=== PATIENT | female | born 1985 | race American Indian/Alaskan Native ===

== ENCOUNTER 2016-09-08 09:11 | Emergency (ER) | payer SELFPAY ==
[2016-09-08] MEDS ORDERED: MOTRIN PO ONE (12:29)
[2016-09-08] MEDS ORDERED: MAGIC MOUTHWASH PO ONE (12:29)
[2016-09-08] MEDS ORDERED: TYLENOL PO ONE (12:29)
[2016-09-08] MEDS ORDERED: DECADRON IM ONE (12:30)
--- NOTE | 2016-09-08 12:31 | Emergency Department Report ---
ED General Adult HPI - General Chief complaint: Sore Throat Stated complaint: THROAT PAIN/CANT SWALLOW Time Seen by Provider: 09/08/16 12:29 Source: patient, RN notes reviewed Mode of arrival: Ambulatory Limitations: No Limitations - History of Present Illness Initial comments: This is a 31-year-old female. She is previously unknown to me. She reports that she is not . She presents to the ER with sore throat, pain with swallowing. This is been going on for the past 4-5 days. She complains of laryngitis and change in her voice. She complains of mild posterior throat pain. There is no neck stiffness. There is no headache. There is no shortness of breath. The patient reports that she is not . -: Gradual Location: mouth, neck Quality: aching Consistency: intermittent Improves with: rest Worsens with: eating, movement Associated Symptoms: denies: confusion, chest pain, diaphoresis, headaches, loss of appetite, malaise, shortness of breath, syncope, weakness - Related Data Previous Rx's Medication Instructions Recorded Last Taken Type Famotidine [Pepcid] 20 mg PO QDAY #10 tablet 09/08/16 Unknown Rx Ibuprofen [Motrin] 600 mg PO Q8H PRN #30 tablet 09/08/16 Unknown Rx Nystas/Diphen/Xyl Visc/Mylanta 480 ml MM Q4HR PRN #1 udc 09/08/16 Unknown Rx [Magic Mouthwash] predniSONE [Deltasone] 40 mg PO QDAY #8 tab 09/08/16 Unknown Rx Allergies Allergy/AdvReac Type Severity Reaction Status Date / Time No Known Allergies Allergy Verified 09/08/16 10:53 ED Review of Systems ROS: Stated complaint: THROAT PAIN/CANT SWALLOW Other details as noted in HPI ED Past Medical Hx - Past Medical History Previous Medical History?: Yes Hx Hypertension: Yes - Surgical History Past Surgical History?: Yes Hx Cholecystectomy: Yes - Social History Smoking Status: Current Every Day Smoker Substance Use Type: Alcohol - Medications Home Medications: Home Medications Medication Instructions Recorded Confirmed Last Taken Type Famotidine [Pepcid] 20 mg PO QDAY #10 tablet 09/08/16 Unknown Rx Ibuprofen [Motrin] 600 mg PO Q8H PRN #30 tablet 09/08/16 Unknown Rx Nystas/Diphen/Xyl Visc/Mylanta 480 ml MM Q4HR PRN #1 udc 09/08/16 Unknown Rx [Magic Mouthwash] predniSONE [Deltasone] 40 mg PO QDAY #8 tab 09/08/16 Unknown Rx ED Physical Exam - General Limitations: No Limitations General appearance: alert, in no apparent distress - Head Head exam: Present: atraumatic, normocephalic - Eye Eye exam: Present: normal appearance, EOMI - ENT ENT exam: Present: normal exam, normal orophraynx, mucous membranes moist, TM's normal bilaterally, normal external ear exam, other (there is no mastoid tenderness. The bilateral urinary globules and helices are nontender) - Neck Neck exam: Present: normal inspection, full ROM, lymphadenopathy (anterior cervical adenopathy). Absent: tenderness, meningismus - Respiratory Respiratory exam: Present: normal lung sounds bilaterally. Absent: respiratory distress - Cardiovascular Cardiovascular Exam: Present: regular rate, normal rhythm. Absent: systolic murmur, diastolic murmur, rubs, gallop - GI/Abdominal GI/Abdominal exam: Present: soft, normal bowel sounds - Extremities Exam Extremities exam: Present: normal inspection - Back Exam Back exam: Present: normal inspection - Neurological Exam Neurological exam: Present: alert, oriented X3, normal gait, other (Extraocular movements intact. Tongue midline. No facial droop. Facial sensation intact to light touch in the V1, V2, V3 distribution bilaterally. 5 and 5 strength in 4 extremities.. Sensation is intact to light touch in 4 extremities.). Absent : motor sensory deficit - Psychiatric Psychiatric exam: Present: normal affect, normal mood - Skin Skin exam: Present: warm, dry, intact, normal color. Absent: rash ED Course Vital Signs 09/08/16 09/08/16 10:49 13:43 Temperature 99 F 98.1 F Pulse Rate 71 85 Respiratory 16 18 Rate Blood Pressure 153/115 Blood Pressure 131/74 [Right] O2 Sat by Pulse 100 100 Oximetry ED Medical Decision Making - Lab Data Vital Signs 09/08/16 09/08/16 10:49 13:43 Temperature 99 F 98.1 F Pulse Rate 71 85 Respiratory 16 18 Rate Blood Pressure 153/115 Blood Pressure 131/74 [Right] O2 Sat by Pulse 100 100 Oximetry - Radiology Data Radiology results: report reviewed, image reviewed Soft tissue x-ray of the neck demonstrates no fracture or dislocation or significant findings. - Medical Decision Making Differential diagnosis: Pharyngitis, laryngitis, uvulitis Assessment and plan: 31-year-old female with clinical laryngitis, probable uvulitis, who is afebrile, with reassuring vital signs, with no stridor, able to speak in full sentences and protecting her airway. She felt improved after symptomatic therapy. She will be discharged with pain medication, Magic mouthwash, steroids, instructions to follow up with outpatient otolaryngology. Return precautions are reviewed. Critical care attestation.: If time is entered above; I have spent that time in minutes in the direct care of this critically ill patient, excluding procedure time. ED Disposition Clinical Impression: Laryngitis Disposition: - TO HOME OR SELFCARE Is pt being admited?: No Does the pt Need Aspirin: No Condition: Stable Instructions: Laryngitis (ED) Additional Instructions: Take medications as directed. Follow up with the primary care doctor or otolaryngology specialist within the next week. Return to the ER right away with new pain, worsened pain, migration of pain, fevers, chills, confusion, chest pain, shortness of breath, intractable nausea or vomiting, inability to tolerate liquid feeds. Referrals: PRIMARY CARE, [Primary Care Provider] - 3-5 Days ÁNGEL HENDERSON MD [Staff Physician] - 3-5 Days MAXIME GAYTAN MD [Staff Physician] - 3-5 Days MARILOU JORDAN MD [Staff Physician] - 3-5 Days NUBIA URBINA MD [Staff Physician] - 3-5 Days AILYN COWART MD [Staff Physician] - 3-5 Days
[2016-09-08 13:44] VITALS: BP 131/74
--- NOTE | 2016-09-08 15:08 | XRay Report ---
NECK SOFT TISSUE RADIOGRAPHS INDICATION: Neck pain, possible laryngitis. COMPARISON: None similar at this institution. FINDINGS: AP and lateral neck soft tissue radiographs demonstrate patent airway with grossly unremarkable epiglottic contour, to the extent assessed. Clear imaged lung apices. Normal bones. Bilateral earrings and some other extrinsic artifacts. CONCLUSION: No acute significant neck soft tissue radiographic abnormality, as described. Thank you for the opportunity to participate in this patient's care.
== END 2016-09-08 15:36 | disposition home or self-care (01) ==
LOC: ED 09:11
DX: J04.0 Acute laryngitis (principal)
CPT/HCPCS: 70360; 96372; 99283; J1100

== ENCOUNTER 2017-07-06 11:50 | Emergency (ER) | payer SELFPAY ==
[2017-07-06] MEDS ORDERED: TORADOL IM ONE (14:05)
[2017-07-06] MEDS ORDERED: NACL 0.9% 1000 ML 1,000 ML IV ONE (14:24)
[2017-07-06 14:44] LABS: Bacteria,Urine 3+ /HPF (Negative); Bilirubin,Urine NEG (Negative); Blood,Urine MOD (Negative); Color,Urine Amber (Yellow); Mucus,Urine FEW /HPF
[2017-07-06 14:45] LABS: WBC,Urine > 182.0 /HPF (0.0-6.0)
[2017-07-06 14:45] LABS: Basophils % (Auto) 0.4 % (0.0-1.8); Eosinophils # (Auto) 0.1 K/mm3 (0.0-0.4); Eosinophils % (Auto) 0.5 % (0.0-4.3); Hematocrit 37.8 % (30.3-42.9); Lymphocytes # (Auto) 2.3 K/mm3 (1.2-5.4); Lymphocytes % (Auto) 19.2 % (13.4-35.0); Mean Corpuscular HGB Conc 32 % (30-34); Mean Corpuscular Hemoglobin 28 pg (28-32); Mean Corpuscular Volume 90 fl (79-97); Monocytes # (Auto) 0.7 K/mm3 (0.0-0.8); Platelet Count 260 K/mm3 (140-440); Red Blood Count 4.21 M/mm3 (3.65-5.03); Red Cell Distribution Width 14.1 % (13.2-15.2)
[2017-07-06 14:46] LABS: HCG Qualitative,Urine Negative (Negative)
[2017-07-06] MEDS ORDERED: ROCEPHIN/NS 1 GM/50 ML 1 GM/50 ML BAG IV ONE (14:47)
[2017-07-06 15:09] LABS: BUN/Creatinine Ratio 11; Blood Urea Nitrogen 8 mg/dL (7-17); Calcium 8.7 mg/dL (8.4-10.2); Hemolysis Index 15
--- NOTE | 2017-07-06 15:11 | Emergency Department Report ---
ED Female HPI - General Chief complaint: Back Pain/Injury Stated complaint: LOWER BACK PAIN Time Seen by Provider: 07/06/17 14:02 Source: patient Mode of arrival: Ambulatory Limitations: No Limitations - History of Present Illness Initial comments: This is a 32-year-old female nontoxic, well nourished in appearance, no acute signs of distress presents to the ED with c/o of right sided flank pain with dysuria and polyuria x3 days. Patient denies any nausea, vomiting, chest pain, shortness of breathe, fever, chills, radiation of pain, numbness, or tingling. Patient denies any abdominal pain or pelvic pain. Patient denies any allergies. PMH includes HTN. MD Complaint: dysuria, other (right flank pain) -: days(s) (3) Radiation: non-radiating Severity: mild Severity scale (0 -10): 8 Quality: cramping, aching Consistency: constant Improves with: none Worsens with: urination Associated Symptoms: dysuria. denies: vaginal discharge, vaginal bleeding, abdominal pain, nausea/vomiting, fever/chills, headaches, loss of appetite, hematuria, rash, seizure, shortness of breath, syncope, weakness - Related Data Previous Rx's Medication Instructions Recorded Last Taken Type Famotidine [Pepcid] 20 mg PO QDAY #10 tablet 09/08/16 Unknown Rx Ibuprofen [Motrin] 600 mg PO Q8H PRN #30 tablet 09/08/16 Unknown Rx Nystas/Diphen/Xyl Visc/Mylanta 480 ml MM Q4HR PRN #1 udc 09/08/16 Unknown Rx [Magic Mouthwash] predniSONE [Deltasone] 40 mg PO QDAY #8 tab 09/08/16 Unknown Rx Acetaminophen/Codeine [Tylenol 1 tab PO Q6H PRN #12 tab 07/06/17 Unknown Rx /Codeine # 3 tab] Ciprofloxacin [Ciprofloxacin ORAL 500 mg PO Q12H #14 ml 07/06/17 Unknown Rx LIQ] Fluconazole [Diflucan] 150 mg PO ONCE #1 tablet 07/06/17 Unknown Rx Ibuprofen [Motrin] 600 mg PO Q8H PRN #30 tablet 07/06/17 Unknown Rx Allergies Allergy/AdvReac Type Severity Reaction Status Date / Time No Known Allergies Allergy Verified 09/08/16 10:53 ED Review of Systems ROS: Stated complaint: LOWER BACK PAIN Other details as noted in HPI Constitutional: denies: chills, fever Eyes: denies: eye pain, eye discharge, vision change ENT: denies: ear pain, throat pain Respiratory: denies: cough, shortness of breath, wheezing Cardiovascular: denies: chest pain, palpitations Endocrine: no symptoms reported Gastrointestinal: denies: abdominal pain, nausea, diarrhea Genitourinary: urgency, dysuria, frequency. denies: hematuria, discharge Musculoskeletal: back pain. denies: joint swelling, arthralgia Skin: denies: rash, lesions Neurological: denies: headache, weakness, paresthesias Psychiatric: denies: anxiety, depression Hematological/Lymphatic: denies: easy bleeding, easy bruising ED Past Medical Hx - Past Medical History Hx Hypertension: Yes - Surgical History Hx Cholecystectomy: Yes - Social History Smoking Status: Current Some Day Smoker Substance Use Type: Alcohol - Medications Home Medications: Home Medications Medication Instructions Recorded Confirmed Last Taken Type Famotidine [Pepcid] 20 mg PO QDAY #10 tablet 09/08/16 Unknown Rx Ibuprofen [Motrin] 600 mg PO Q8H PRN #30 tablet 09/08/16 Unknown Rx Nystas/Diphen/Xyl Visc/Mylanta 480 ml MM Q4HR PRN #1 udc 09/08/16 Unknown Rx [Magic Mouthwash] predniSONE [Deltasone] 40 mg PO QDAY #8 tab 09/08/16 Unknown Rx Acetaminophen/Codeine [Tylenol 1 tab PO Q6H PRN #12 tab 07/06/17 Unknown Rx /Codeine # 3 tab] Ciprofloxacin [Ciprofloxacin ORAL 500 mg PO Q12H #14 ml 07/06/17 Unknown Rx LIQ] Fluconazole [Diflucan] 150 mg PO ONCE #1 tablet 07/06/17 Unknown Rx Ibuprofen [Motrin] 600 mg PO Q8H PRN #30 tablet 07/06/17 Unknown Rx ED Physical Exam - General Limitations: No Limitations General appearance: alert, in no apparent distress - Head Head exam: Present: atraumatic, normocephalic - Eye Eye exam: Present: normal appearance Pupils: Present: normal accommodation - ENT ENT exam: Present: normal exam, mucous membranes moist - Neck Neck exam: Present: normal inspection, full ROM. Absent: tenderness, meningismus, lymphadenopathy - Respiratory Respiratory exam: Present: normal lung sounds bilaterally. Absent: respiratory distress, wheezes, rales, rhonchi, stridor, chest wall tenderness, accessory muscle use, decreased breath sounds, prolonged expiratory - Cardiovascular Cardiovascular Exam: Present: regular rate, normal rhythm, normal heart sounds. Absent: irregular rhythm, systolic murmur, diastolic murmur, rubs, gallop - GI/Abdominal GI/Abdominal exam: Present: soft, normal bowel sounds. Absent: distended, tenderness, guarding, rebound, rigid, diminished bowel sounds - Rectal Rectal exam: Present: deferred - Extremities Exam Extremities exam: Present: normal inspection, full ROM, normal capillary refill - Back Exam Back exam: Present: normal inspection, full ROM, CVA tenderness (R). Absent: tenderness, CVA tenderness (L), muscle spasm, paraspinal tenderness, vertebral tenderness, rash noted - Neurological Exam Neurological exam: Present: alert, oriented X3, normal gait - Psychiatric Psychiatric exam: Present: normal affect, normal mood - Skin Skin exam: Present: warm, dry, intact, normal color. Absent: rash ED Course Vital Signs 07/06/17 07/06/17 12:39 16:23 Temperature 98.3 F 98.0 F Pulse Rate 97 H 69 Respiratory 18 18 Rate Blood Pressure 134/88 Blood Pressure 114/80 [Left] O2 Sat by Pulse 100 99 Oximetry - Reevaluation(s) Reevaluation #1: 07/06/17 15:15 Patient is speaking in full sentences with no signs of distress noted. ED Medical Decision Making - Lab Data Result diagrams: 07/06/17 14:33 07/06/17 14:33 - Medical Decision Making This is a 32-year-old female that presents with pyelonephritis. Patient is stable was examined by me. Dr. Pablo was consulted about patient and agrees to the ED plan of care with discharge paln of care. Patient is afebrile with normal heart rate. Normal labs. UA indicates UTI. Patient is nonseptic. Patient received first dose of antibiotics 1 g Rocephin IV. Patient is discharged with Cipro x7 days. I will also provide patient Diflucan as she stated that she gets yeast infection from antibiotics. Urine culture pending. Patient was instructed to increase hydration. Patient was received 1 L of normal saline ED. Patient was referred to Follow-up with a primary care doctor in 3-5 days or if symptoms worsen and continue return to emergency room as soon as possible. At time of discharge, the patient does not seem toxic or ill in appearance. No acute signs of distress noted. Patient agrees to discharge treatment plan of care. No further questions noted by the patient. Critical care attestation.: If time is entered above; I have spent that time in minutes in the direct care of this critically ill patient, excluding procedure time. ED Disposition Clinical Impression: Pyelonephritis Disposition: DC- TO HOME OR SELFCARE Is pt being admited?: No Does the pt Need Aspirin: No Condition: Stable Instructions: Urinary Tract Infection in Women (ED), Ciprofloxacin (By mouth), Acetaminophen/Codeine (By mouth), Ibuprofen (By mouth) Additional Instructions: Follow-up with a primary care doctor in 3-5 days or if symptoms worsen and continue return to emergency room as soon as possible. Prescriptions: Acetaminophen/Codeine [Tylenol /Codeine # 3 tab] 1 tab PO Q6H PRN #12 tab PRN Reason: Pain Ciprofloxacin [Ciprofloxacin ORAL LIQ] 500 mg PO Q12H #14 ml Fluconazole [Diflucan] 150 mg PO ONCE #1 tablet Ibuprofen [Motrin] 600 mg PO Q8H PRN #30 tablet PRN Reason: Pain Referrals: PRIMARY CARE, [Primary Care Provider] - 3-5 Days SRINIVAS COOK MD [Staff Physician] - 3-[address] [facility] [Outside] - 3-5 Days [facility] [Outside] - 3-5 Days Forms: Work/School Release Form(ED)
[2017-07-06 16:25] VITALS: BP 114/80
[2017-07-06] MEDS ORDERED: cefTRIAXone 1 GM in NACL 0.9% 20 ML IV ONE (16:30)
== END 2017-07-06 18:26 | disposition home or self-care (01) ==
LOC: ED 11:50
DX: N12 Tubulo-interstitial nephritis, not specified as acute or chronic (principal); I10 Essential (primary) hypertension; F17.200 Nicotine dependence, unspecified, uncomplicated; Z90.49 Acquired absence of other specified parts of digestive tract
CPT/HCPCS: 36415; 80048; 81001; 81025; 82550; 85025; 87076; 87086; 87186; 96361; 96372; 96374; 99283; J0696; J1885; J7030